=== PATIENT | male | born 1960 | race Caucasian/White ===

== ENCOUNTER → 2017-05-08 | Outpatient (CLI) | payer OTHER ==
[~2017-05-08] MED LIST: ASPI81TA28 PO; CHOL20007 PO; FRS/40 PO; GLC/500 PO; LISI10TA PO; TAMS0.4C38 PO; VSC/5 PO
--- NOTE | 2017-05-08 16:28 | DIAGNOSTIC IMAGING REPORT ---
THORACOLUMBAR SPINE 2 VIEWS CLINICAL HISTORY: CHECK CATHETER LOCATION FROM INTRA PUMP catheter position COMPARISON STUDY: None FINDINGS: Infusion catheter in position. Catheter is placed within the dorsal aspect of the spinal canal at this. Tip at the level T12. Catheter appears to be intact. IMPRESSION: Infusion catheter placed with the superior tip at the level of T12. The above report was generated using voice recognition software. It may contain grammatical, syntax or spelling errors. Electronically signed by: Alistair Cordova M.D. 05/08/2017 4:26 PM Dictated Date/Time: 05/08/2017 4:25 PM
== END | disposition home or self-care (01) ==
LOC: C.RADBC 15:23
PROVIDERS: ATTEND Physician Assistant Medical
DX: Z97.8 Presence of other specified devices (principal)

== ENCOUNTER → 2017-06-24 | Outpatient (CLI) | payer OTHER ==
[~2017-06-24] MED LIST changes: +GADAVIST IV PRN
--- NOTE | 2017-06-24 16:43 | DIAGNOSTIC IMAGING REPORT ---
THORACIC SPINE COMBO HISTORY: 57 years-old Male CHECK INTRATHECAL CATHETER TIP pain pump in place. Patient is currently asymptomatic. Study is ordered to confirm placement of a pain pump catheter tip COMPARISON: Thoracic lumbar spine radiographs 05/08/2017 TECHNIQUE: Multiplanar multisequence thoracic spine MR was conducted both with and without the use of 9 mL Gadavist. FINDINGS: The large rrole-hr-lamb assistant track coach localizer images demonstrate no gross abnormality of the chest, head or neck. No evidence of cerebellar tonsillar herniation. Imaged posterior fossa structures are unremarkable. Anterior fusion hardware of the cervical spine noted at C5-C6. Posterior disc osteophyte complex formation with facet arthropathy at C6-C7 appears to cause moderate central canal narrowing also likely bilateral foraminal stenosis, not well assessed on this study. Broad-based posterior disc bulge at C7-T1 is also noted flattening the ventral thecal sac. No focal bone marrow edema, fracture or subluxation identified. Signal within the cord is within normal limits. No abnormal enhancement identified. There is tortuosity of the descending thoracic aorta. Mild intervertebral disc space narrowing with minimal posterior disc bulging is noted at the upper thoracic levels extending from C7-T1 to T4-T5. No significant central canal or foraminal narrowing. Mild multilevel facet arthrosis. At T10-T11 there is mild to moderate facet arthropathy. Catheter tip is noted at T12-L1 which appears to be intrathecal. No associated enhancement to suggest granuloma. IMPRESSION: 1. Catheter tip is seen at T12-L1. No associated enhancement identified to suggest associated granuloma. 2. Mild discogenic degenerative changes and facet arthropathy as above without high-grade central canal or foraminal narrowing. 3. Anterior fusion of the cervical spine at C5-C6. Posterior disc osteophyte complex at C6-C7 with facet arthrosis appears to cause moderate central canal narrowing. This could be further evaluated with dedicated MRI of the cervical spine if clinically indicated. 4. No focal bone marrow edema or fracture. The above report was generated using voice recognition software. It may contain grammatical, syntax or spelling errors. Electronically signed by: Noel Posada M.D. 06/24/2017 4:42 PM Dictated Date/Time: 06/24/2017 4:30 PM
== END | disposition home or self-care (01) ==
LOC: C.MRIBC 13:25
PROVIDERS: ATTEND Physician Assistant Medical
DX: M25.78 Osteophyte, vertebrae (principal); Z98.1 Arthrodesis status; Z97.8 Presence of other specified devices

== ENCOUNTER → 2018-04-01 | Outpatient (CLI) | payer OTHER ==
[~2018-04-01] MED LIST changes: -GADAVIST IV PRN; +[UNRECOGNIZED DRUG - OTHER]
--- NOTE | 2018-04-01 13:35 | DIAGNOSTIC IMAGING REPORT ---
(MICHAEL/BLAD)RETROPERITON COMP CLINICAL HISTORY: 57 years-old Male presenting with Z87.898. TECHNIQUE: Real-time grayscale and limited color Doppler ultrasound imaging of the kidneys and bladder was performed. COMPARISON: None. FINDINGS: Right kidney: Mildly increased echogenicity of the parenchyma with relative expansion of the renal sinus fat suggesting atrophy. Right kidney measures 10.8 cm. No hydronephrosis. Subcentimeter interpolar simple cysts noted. Left kidney: Mildly increased echogenicity of renal parenchyma with relative expansion of renal sinus fat suggesting atrophy. Left kidney measures 10.4 cm. No hydronephrosis. No convincing evidence of calculus or mass. Bladder: Normal. Bilateral ureteral jets present. Other: None. IMPRESSION: 1. Filling suggest medical renal disease. 2. No hydronephrosis. Electronically signed by: Bartolome Thompson M.D. 04/01/2018 1:34 PM Dictated Date/Time: 04/01/2018 1:31 PM
[2018-04-01 15:08] LABS: ALBUMIN 3.8 gm/dl (3.4-5.0); ALKALINE PHOSPHATASE 73 U/L (45-117); ALT/SGPT 20 U/L (12-78); AST/SGOT 12 U/L (15-37); BLOOD UREA NITROGEN 28 mg/dl (7-18); CALCIUM 8.8 mg/dl (8.5-10.1); CARBON DIOXIDE 25 mmol/L (21-32); GLUCOSE 101 mg/dl (70-99); POTASSIUM 3.9 mmol/L (3.5-5.1); SODIUM 137 mmol/L (136-145); TOTAL PROTEIN 7.5 gm/dl (6.4-8.2)
== END | disposition home or self-care (01) ==
LOC: C.ULTR 12:20
PROVIDERS: ATTEND Urology
DX: Z87.898 Personal history of other specified conditions (principal)